=== PATIENT | female | born 1955 | race Caucasian/White ===

== ENCOUNTER 2019-02-22 08:36 | Day surgery (SDC) | payer MEDICARE ==
[2019-02-22 08:57] VITALS: BMI 32.8
[2019-02-22] MEDS ORDERED: Lactated Ringer's 500 ML IV ONE (09:10)
[2019-02-22 09:12] VITALS: RESP 16; TEMP 98
[2019-02-22] MEDS ORDERED: Midazolam 2 MG/2 ML VIAL ONE (11:33)
[2019-02-22] MEDS ORDERED: Propofol 10 mg/ml Inj (20 ML) ONE (11:33)
[2019-02-22 12:09] VITALS: O2SAT 100
[2019-02-22 12:21] VITALS: BP 109/64; PULSE 82
== END 2019-02-22 12:37 | disposition home or self-care (01) ==
LOC: H.ENDO 08:36
PROVIDERS: ATTEND Internal Medicine Gastroenterology
DX: K30 Functional dyspepsia (principal); M19.90 Unspecified osteoarthritis, unspecified site; E11.9 Type 2 diabetes mellitus without complications; E78.5 Hyperlipidemia, unspecified; I10 Essential (primary) hypertension; E66.9 Obesity, unspecified; K29.50 Unspecified chronic gastritis without bleeding
CPT/HCPCS: 43239; 88305; J2001; J2250; J2704; J7120